=== PATIENT | female | born 1960 | race Caucasian/White ===

== ENCOUNTER 2023-10-03 08:46 | Emergency (ER) | payer OTHER, SELFPAY ==
--- NOTE | ~2023-10-03 | CT_ITS ---
EXAMINATION: CT HEAD WITHOUT CONTRAST CLINICAL INFORMATION: Transient facial droop COMPARISON: None. TECHNIQUE: Contiguous axial imaging was performed from the skull base to vertex without intravenous contrast. This CT examination was performed using dose optimization techniques as appropriate, variously including the following: * Automated exposure control * Adjustment of mA and/or kV according to patient size (this includes techniques or standardized protocols for targeted exams where dose is matched to indication/reason for exam; i.e. extremities or head) Use of iterative reconstruction technique DLP: 716 mGy-cm. FINDINGS: There is no evidence of acute intracranial hemorrhage or territorial infarction. No abnormal mass effect or midline shift is seen. Vyas to white matter differentiation is well preserved. No extra-axial fluid collections are identified. No hydrocephalus. No significant volume loss. There is no abnormal attenuation within the brain parenchyma. The osseous structures and soft tissues are normal. The mastoid air cells and visualized portions of the paranasal sinuses are well aerated. CT/CT head/brain wo IV con IMPRESSION: No acute intracranial pathology.
[2023-10-03 09:00] VITALS: PULSE 110; O2SAT 96
[2023-10-03 09:01] VITALS: BMI 26.5
--- NOTE | 2023-10-03 09:31 | ED_ITS ---
HPI - General Adult General Chief complaint: General Medical Stated complaint: L SIDED FACIAL PALSY Time Seen by Provider: 10/03/23 09:26 Source: patient, EMS, RN notes reviewed and other (facility staff) Mode of arrival: EMS Limitations: physical limitation History of Present Illness HPI narrative: Patient is a 63-year-old female with history of schizophrenia, afib, HTN, hypothyroidism, CHD, HLD, head injury in 1982 presenting to the emergency department from [place] for concern of left sided facial droop and stiffness. Per nursing notes droop was noted on day shift 7-3 yesterday, no other specific time can be established, note also states patient was hyponatremic on 09/23 with level of 128. Patient's only complaint is sensation of having to urinate but when she attempts to go, she in unable. Staff report patient has been complaining of urinary symptoms since yesterday. Patient denies chest pain, palpitations, shortness of breath. She denies abdominal pain, nausea, vomiting, diarrhea, constipation. MD complaint: facial droop Onset (ago): unknown Location: face Associated symptoms: other (urinary urgency) Treatments prior to arrival: none Related Data Allergies Allergy/AdvReac Type Severity Reaction Status Date / Time codeine [CODEINE] Allergy Severe DIFF Verified 10/03/23 08:59 BREATHING morphine [MORPHINE] Allergy Severe DIFF Verified 10/03/23 08:59 BREATHING zolpidem [From AMBIEN] Allergy Severe THROAT Verified 10/03/23 08:59 CLOSES oxycodone [OXYCODONE] Allergy Intermediate HIVES Verified 10/03/23 08:59 From DEMEROL Allergy Intermediate HIVES Uncoded 10/03/23 08:59 From KEFLEX Allergy Intermediate HIVES Uncoded 10/03/23 08:59 From PROZAC Allergy Intermediate HIVES Uncoded 10/03/23 08:59 Review of Systems 2 Review of Systems: As per HPI Yes all other systems are reviewed and are negative PMFSH Social History Social History Smoked in Last 30 Days: No Use of substances other than those prescribed or required for medical reasons: No Advance Directives: Yes Advance Directives Information Provided: Yes Advance Directives on File: No Patient : No Physical Exam ED Vital Signs: Vital Signs - 24 hr 10/03/23 10:40 10/03/23 11:15 10/03/23 13:20 Temperature 98.0 F 98.3 F 97.0 F Pulse Rate 78 74 87 Respiratory Rate 15 16 16 Blood Pressure 145/56 H 142/59 H 152/62 H Pulse Oximetry 96 98 96 Oxygen Delivery Method Room Air Room Air Room Air BMI result Body Mass Index 26.5 Vital signs have been reviewed and appear to be correct. Blood pressure normal. Heart rate normal. Respiratory rate normal. Temperature normal. Oxygen saturation normal. Const General: cooperative, no acute distress, alert and awake Nutritional Appearance: average body habitus Orientation/consciousness: patient oriented x3 HENMT Head: Yes normocephalic and Yes atraumatic Ears: hearing grossly normal bilaterally and external ears normal General nose exam: Normal external nose present Face and sinus: Yes normal facial exam and Yes face symmetric Mouth: Normal oral and palatal mucosa present Throat: Yes posterior oropharynx normal, Yes uvula midline and No uvular edema Eyes Visual Early: normal visual early by confrontation Pupils: Equal, round and reactive pupils present EOM: EOMs intact bilaterally Neck Neck: Yes normal visual inspection, Yes full ROM and Yes supple Resp Effort & Inspection: normal respiratory effort Auscultation: clear to auscultation bilaterally Cardio Rate: regular rate Rhythm: regular rhythm Heart sounds: S1 normal heart sound present and S2 normal heart sound present GI Inspection: Yes normal to inspection Palpation (GI): Soft to palpation and nontender Auscultation: normoactive bowel sounds General: Yes no CVA tenderness Back/Spine/Pelvis Back: no CVA tenderness Skin General skin exam: elasticity normal and turgor normal Neuro General: patient oriented x3, tone normal, moves all extremities, Normal light touch and pain sensation, no focal motor deficits and CN's II-XI intact bilaterally Cranial nerves: Yes Equal, round and reactive pupils present Sensory Exam: Normal double simultaneous stimulation for sensation Extrem General: Yes normal to inspection, Yes full ROM and Yes capillary refill normal Psych Appearance: grossly normal Affect: Blunted affect present Attitude: cooperative NIH Stroke Scale Internal: Initial- Upon Arrival Time: 10:32 Level of Consciousness: Alert Level of Consciousness Questions: Answers both questions correctly Level of Consciousness Commands: Performs both tasks correctly Best Gaze: Normal Visual: No visual loss Facial Palsy: Normal Motor Arm (Right): No drift Motor Arm (Left): No drift Motor Leg (Right): No drift Motor Leg (Left): No drift Limb Ataxia: Absent Sensory: Normal Best Language: No aphasia Dysarthia: Normal Extinction and Inattention: No abnormality Score: 0 Medications Administered Discontinued Medications Generic Name Dose Route Start Last Admin Trade Name Jim PRN Reason Stop Dose Admin Sodium Chloride 1,000 mls @ 999 mls/hr 10/03/23 11:45 10/03/23 13:08 Ns IV 10/03/23 12:45 Not Given .Q1H1M [facility] Medical Decision Making Medical Decision Making [facility] Narrative: Patient is a 63-year-old female with history of schizophrenia, afib, HTN, hypothyroidism, CHD, HLD, head injury in 1982 presenting to the emergency department from [place] for concern of left sided facial droop and stiffness. On exam patient is awake, A+Ox3, VS WNL, afebrile, normal neurological exam without focal deficits, physical exam findings as above. Given reported symptoms and physical exam findings, initial differential includes CVA/TIA/ICH, medication reaction, UTI, electrolyte abnormality. Labs notable for no leukocytosis, hyponatremia. IV fluids ordered which patient refused. Patient amenable to PO salt in the ED. Sodium stable from labs on 09/23. Will recommend trending sodium levels outpatient. CT notable for no acute abnormalities. My interpretation is in agreement with the radiologist's interpretation. NIHSS 0. No facial droop or other focal neurological deficit noted on exam. No evidence of infection on UA. Feel patient is stable back to facility at this time. Return precautions discussed at bedside with staff who verbalized understanding of and agreement with plan. Differential Diagnosis Differential Diagnoses: The differential diagnosis associated with the presentation includes As per [facility]. Admission/Observation Consideration of admission/observation: Escalation of care including admission/observation considered Lab Data [facility] Lab Attestation statement: I reviewed the patient's lab results. As per MDM. 10/03/23 11:11 10/03/23 11:11 Labs: Lab Results 10/03/23 10/03/23 Range/Units 11:11 11:55 WBC 5.8 (4.8-10.8) X10*3/uL RBC 3.88 L (4.20-5.50) X10*6/uL Hgb 12.0 (12.0-16.0) g/dl Hct 33.5 L (37.0-47.0) % MCV 86.3 (80.0-98.0) fL MCH 30.9 (27.0-33.0) pg MCHC 35.8 H (31.0-35.0) g/dl RDW 12.4 (11.0-16.0) % Plt Count 269 (160-400) X10*3/uL MPV 9.2 L (9.4-12.3) fL Immature Gran % (Auto) 0.3 (0.0-0.4) % Neut % (Auto) 63.0 (45-73) % Lymph % (Auto) 22.6 (20-40) % [place] % (Auto) 11.1 H (2-11) % Eos % (Auto) 2.3 (0-4) % Baso % (Auto) 0.7 (0-2) % Lymph # (Auto) 1.3 (1.2-4.9) X10*3/uL [place] # (Auto) 0.6 (0.1-1.2) X10*3/uL Eos # (Auto) 0.1 (0.0-0.4) X10*3/uL Baso # (Auto) 0.0 (0.0-0.2) X10*3/uL Abs Immat Gran (auto) 0.02 (0.00-0.03) X10*3/uL Absolute Neuts (auto) 3.6 (2.0-8.3) x10*3/uL Absolute Nucleated RBC 0.000 (0.0-0.012) X10*3/uL Nucleated RBC % (auto) 0.0 (0.0-0.2) /100WBC Sodium 128 L (135-145) mmol/L Potassium 3.7 (3.3-5.1) mmol/L Chloride 93 L (96-108) mmol/L Carbon Dioxide 27 (22-29) mmol/L Anion Gap 12 (12-20) BUN 8 L (9-16) mg/dL Creatinine 0.52 (0.5-1.4) mg/dL Estim Creat Clear Calc 101.1 Estimated GFR > 60 Random Glucose 81 (60-115) mg/dL Calcium 8.6 (8.4-10.2) mg/dL Urine Color Yellow Urine Appearance Clear Urine pH 6.0 (5.0-9.0) Ur Specific [place] 1.015 (1.005-1.025) Urine Protein Negative (Neg-Trace) mg/dL Urine Glucose (UA) Negative (Negative) mg/dL Urine Ketones 80 (Negative) mg/dL Urine Blood Negative (Negative) Urine Nitrite Negative (Negative) Ur Leukocyte Esterase Negative (Negative) Independent Interpretation I performed an independent interpretation of an: CT Scan Interpretation: No acute intracranial pathology. Radiology Impression Discussion of test interpretation with radiology: I have reviewed the radiologist's reading. Radiologist Impression: CT/CT head/brain wo IV con IMPRESSION: No acute intracranial pathology. Independent Historian Clinical information obtained from an independent historian. History obtained from or confirmed by: Other (facility staff) External Record Review External record reviewed: Inpatient record, Office record and Outpatient record Chronic Conditions Patient?s care impacted by: Other (schizophrenia) Discharge Plan Discharge Clinical Impression: Hyponatremia Patient Disposition: [facility] Transfer Details: Return to [place] with staff Instructions: Hyponatremia (ED) Additional Instructions: Ema should have her sodium levels monitored regularly, as her level was low on 09/23 and was also low in the emergency department today. Her urine did not show evidence of infection. She should return to the emergency department if she develops new confusion, loss of consciousness, numbness/tingling, weakness, trouble speaking, vision changes, chest pain, shortness of breath, or any other concerning symptoms.
[2023-10-03 10:40] VITALS: BP 145/56; PULSE 78; RESP 15; TEMP 36.7; O2SAT 96
[2023-10-03 11:15] VITALS: BP 142/59; PULSE 74; RESP 16; TEMP 36.8; O2SAT 98
[2023-10-03 11:16] LABS: MANUAL DIFF FLAG NO
[2023-10-03 11:19] LABS: Basophils Percent Auto 0.7 % (0-2); Eosinophils Absolute Auto 0.1 X10*3/uL (0.0-0.4); Eosinophils Percent Auto 2.3 % (0-4); Hematocrit 33.5 % (37.0-47.0); Imm Gran Abs Auto 0.02 X10*3/uL (0.00-0.03); Imm Gran Pct Auto 0.3 % (0.0-0.4); Lymphocytes Absolute Auto 1.3 X10*3/uL (1.2-4.9); Lymphocytes Percent Auto 22.6 % (20-40); Mean Corpuscular HGB Conc 35.8 g/dl (31.0-35.0); Mean Corpuscular Hemoglobin 30.9 pg (27.0-33.0); Mean Corpuscular Volume 86.3 fL (80.0-98.0); Mean Platelet Volume 9.2 fL (9.4-12.3); Monocytes Absolute Auto 0.6 X10*3/uL (0.1-1.2); Monocytes Percent Auto 11.1 % (2-11); Neutrophils Absolute Auto 3.6 x10*3/uL (2.0-8.3); Platelet Count 269 X10*3/uL (160-400); Red Blood Count 3.88 X10*6/uL (4.20-5.50); Red Cell Distribution Width 12.4 % (11.0-16.0); White Blood Count 5.8 X10*3/uL (4.8-10.8)
[2023-10-03 11:31] LABS: Anion Gap 12 (12-20); Blood Urea Nitrogen 8 mg/dL (9-16); Calcium 8.6 mg/dL (8.4-10.2); Carbon Dioxide 27 mmol/L (22-29); Chloride 93 mmol/L (96-108); Creatinine Clr Calc Pharmacy 101.1; Estimated Glomerular Filt Rate > 60; Glucose Random 81 mg/dL (60-115); Potassium 3.7 mmol/L (3.3-5.1); Sodium 128 mmol/L (135-145)
[2023-10-03 12:13] LABS: Appearance Urine Clear; Color Urine Yellow; Glucose Urine UA Negative (Negative); Leukocyte Esterase Urine Negative (Negative); Nitrite Urine Negative (Negative); Specific Gravity - Urine 1.015 (1.005-1.025); Urine Blood Negative (Negative); Urine Ketones 80 mg/dL (Negative); Urine Protein Negative (Neg-Trace)
--- NOTE | 2023-10-03 13:08 | PC.NURSE ---
PT A/O X 3 NO SOB/EZIO NOTED SPEAKS IN FULL SENTENCE. BHN PERSONNEL AT BEDSIDE. PT REFUSED HEPLOCK AND IV FLUIDS. PROVIDER - GABRIELLE (TANYA) AWARE.VPT TO BE GIVEN MULTIPLE SALTINE CRACKERS AND JUICE. NO BEHAVIOR ISSUES.
[2023-10-03 13:20] VITALS: BP 152/62; PULSE 87; RESP 16; TEMP 36.1; O2SAT 96
--- NOTE | 2023-10-03 13:37 | MHC.EDTECH ---
Pt given diet gingerale and multiple packs of saltine crackers
== END 2023-10-03 15:32 ==
PROVIDERS: Registered Nurse Emergency; Emergency Provider Emergency Medicine
DX: E87.1 Hypo-osmolality and hyponatremia (principal); R29.810 Facial weakness; N39.41 Urge incontinence; Z79.899 Other long term (current) drug therapy
CPT/HCPCS: 36415; 51701; 70450; 80048; 81003; 85025; 99284

== ENCOUNTER 2023-10-06 06:11 | Emergency (ER) | payer OTHER, SELFPAY ==
[2023-10-06] VITALS (8 sets, daily range): BP systolic 102–157; BP diastolic 52–67; PULSE 82–135; RESP 13–24; TEMP 36.4–37.9; O2SAT 93–99; BMI 25.3
--- NOTE | 2023-10-06 | ECG_ITS ---
Test Reason : CHEST PAIN Blood Pressure : / mmHG Vent. Rate : 093 BPM Atrial Rate : 093 BPM P-R Int : 138 ms QRS Dur : 092 ms QT Int : 378 ms P-R-T Axes : 053 074 049 degrees QTc Int : 469 ms Sinus rhythm with Premature atrial complexes RSR' or QR pattern in V1 suggests right ventricular conduction delay Abnormal ECG When compared with ECG of 11-SEP-2015 14:34, Premature atrial complexes are now Present Nonspecific T wave abnormality no longer evident in Anterior leads Referred By: Generic ED Physician Electronically Signed By:YU BASHIR MD
--- NOTE | ~2023-10-06 | CT_ITS ---
Examination: CT brain and CT cervical spine without contrast. Clinical indications: Fall. COMPARISON: CT brain 10/03/2023. TECHNIQUE: 5 minutes thin axial and reformatted 2 mm thin sagittal and coronal images of brain were obtained. Subsequently axial 3 minutes thin and reformatted 2 mm thin sagittal and coronal images of cervical spine were obtained. DLP [id number]. This CT examination was performed using dose optimization technique as appropriate, variously including the following: Automated exposure control Adjustment of MA and/or KV according to patient size(this includes techniques or standardized protocols for targeted exams where dose is matched to indication/reason for exam; extremities or head. Use of iterative reconstruction techniques. FINDINGS: Brain: There is no acute intra-axial, extra-axial bleed, masses or midline shift. There is no acute infarction evolution. There is no edema. The young to white matter differentiation is maintained normal. The lateral ventricles are symmetrical in size and configuration without enlargement. Bone windows reveal no calvarial abnormality. There is no scalp soft tissue abnormality. There is mild mucosal thickening in bilateral maxillary and ethmoid sinuses. There is no scalp soft tissue abnormality. Cervical spine: There is mild straightening of cervical lordosis. The vertebral heights, alignment and disc heights are normal. There is mild ventral spondylosis C5-C6, C6-C7 disc levels. The craniovertebral junction and the C1-C2 alignment is normal. The airways widely patent. Visualized bilateral thyroid lobes, submandibular and parotid glands are unremarkable. The airway is widely patent. The lung apices are clear. CT/CT cervical spine wo IV con IMPRESSION: 1. No acute intracranial process seen. 2. There is no acute fracture, dislocation or subluxation in cervical spine. There is mild ventral spondylosis C5-C6 and C6-C7 disc levels.
--- NOTE | ~2023-10-06 | XR_ITS ---
EXAMINATION: Right shoulder and chest. CLINICAL INDICATION: Right shoulder pain and SOB. COMPARISON: None. TECHNIQUE: Right shoulder 3 views and chest one view. FINDINGS: Right shoulder: There is no visible acute fracture, dislocation or subluxation. The glenohumeral and AC joint space is maintained normal. The soft tissues are normal. CHEST: The lungs are well-expanded and clear. The heart size and pulmonary vascularity is normal. No gross bony abnormality seen. XR/XR shoulder RT min 2V IMPRESSION: 1. Unremarkable right shoulder exam. 2. Unremarkable chest exam.
--- NOTE | ~2023-10-06 | XR_ITS ---
EXAMINATION: Right shoulder and chest. CLINICAL INDICATION: Right shoulder pain and SOB. COMPARISON: None. TECHNIQUE: Right shoulder 3 views and chest one view. FINDINGS: Right shoulder: There is no visible acute fracture, dislocation or subluxation. The glenohumeral and AC joint space is maintained normal. The soft tissues are normal. CHEST: The lungs are well-expanded and clear. The heart size and pulmonary vascularity is normal. No gross bony abnormality seen. XR/XR chest 1V IMPRESSION: 1. Unremarkable right shoulder exam. 2. Unremarkable chest exam.
--- NOTE | 2023-10-06 06:31 | PC.NURSE ---
pt reporting that her is not correct, RN verifying with [facility] staff at this time
--- NOTE | 2023-10-06 06:33 | PC.NURSE ---
staff reporting is 64. registration is aware
--- NOTE | 2023-10-06 06:36 | ED.GENADULT ---
HPI - General Adult General Chief complaint: General Medical Stated complaint: chest tightness Time Seen by Provider: 10/06/23 06:35 Source: patient, EMS, RN notes reviewed and old records reviewed Mode of arrival: EMS History of Present Illness HPI narrative: 63-year-old female with a past medical history of schizophrenia, A.fib on Eliquis, HTN, hypothyroidism, CHD, HLD, head injury in 1982 presenting to the ED from [place] complaining of unwitnessed mechanical fall from bed last night. Patient admits to hitting head, denies LOC, also reports right shoulder pain. Patient reports noncompliance with medications. Patient reports inability to urinate. Denies headache, neck/pain, CP/SOB, abdominal pain, nausea/vomiting. Onset (ago): hour(s) Related Data Home Medications Medication Instructions Recorded Confirmed acetaminophen 325 mg tablet 650 mg PO Q4H PRN Pain (Scale 10/06/23 10/06/23 Score 1-3) aluminum-mag hydroxide-simethicone 30 ml PO Q6H PRN Heartburn 10/06/23 10/06/23 400 mg-400 mg-40 mg/5 mL oral susp (Mylanta Maximum Strength) apixaban 5 mg tablet 5 mg PO BID 10/06/23 10/06/23 aspirin 81 mg chewable tablet 81 mg PO DAILY 10/06/23 10/06/23 atorvastatin 20 mg tablet 20 mg PO BEDTIME 10/06/23 10/06/23 benztropine 1 mg tablet 1 mg PO BID PRN EPS 10/06/23 10/06/23 chlorpromazine 25 mg/mL injection 50 mg IM Q4H PRN Agitation 10/06/23 10/06/23 solution chlorpromazine 50 mg tablet 50 mg PO Q4H PRN Agitation 10/06/23 10/06/23 cyanocobalamin (vitamin B-12) 1,000 mcg PO DAILY 10/06/23 10/06/23 1,000 mcg tablet diphenhydramine HCl 25 mg tablet 25 mg PO TID PRN Anxiety 10/06/23 10/06/23 diphenhydramine HCl 50 mg/mL 50 mg IM Q4H PRN Agitation 10/06/23 10/06/23 injection solution folic acid 1 mg tablet 1 mg PO DAILY 10/06/23 10/06/23 glycopyrrolate 1 mg tablet 1 mg PO BID 10/06/23 10/06/23 haloperidol 2 mg tablet 2 mg PO BID PRN Psychosis 10/06/23 10/06/23 haloperidol decanoate 100 mg/mL 100 mg IM Q2W 10/06/23 10/07/23 intramuscular solution (Haldol Decanoate) haloperidol lactate 5 mg/mL 2 mg IM BID PRN Psychosis 10/06/23 10/06/23 injection solution levothyroxine 25 mcg tablet 25 mcg PO DAILY 10/06/23 10/06/23 lorazepam 1 mg tablet 1 mg PO Q6H PRN Anxiety 10/06/23 10/06/23 lorazepam 2 mg tablet 2 mg PO BID 10/06/23 10/06/23 magnesium hydroxide 400 mg/5 mL 30 ml PO BEDTIME PRN Constipation 10/06/23 10/06/23 oral suspension (Milk of Magnesia) metoprolol tartrate 25 mg tablet 12.5 mg PO BID 10/06/23 10/06/23 mirtazapine 15 mg tablet 22.5 mg PO BEDTIME 10/06/23 10/06/23 multivitamin 1 tab PO DAILY 10/06/23 10/06/23 naproxen 500 mg tablet 500 mg PO BID PRN Pain (Scale 10/06/23 10/06/23 Score 1-3) nicotine (polacrilex) 2 mg gum 2 mg buccal Q2H PRN Nicotine 10/06/23 10/06/23 Cravings paliperidone palmitate 234 mg/1.5 234 mg IM Q4W 10/06/23 10/07/23 mL intramuscular syringe (Invega Sustenna) pantoprazole 40 mg tablet,delayed 40 mg PO DAILY 10/06/23 10/06/23 release pantoprazole 40 mg tablet,delayed 40 mg PO DAILY 10/06/23 10/06/23 release polyethylene glycol 3350 17 gram 17 g PO DAILY 10/06/23 10/06/23 oral powder packet (Miralax) trazodone 50 mg tablet 50 mg PO BEDTIME PRN Insomnia 10/06/23 10/06/23 Allergies Allergy/AdvReac Type Severity Reaction Status Date / Time codeine [CODEINE] Allergy Severe DIFF Verified 10/03/23 08:59 BREATHING morphine [MORPHINE] Allergy Severe DIFF Verified 10/03/23 08:59 BREATHING zolpidem [From AMBIEN] Allergy Severe THROAT Verified 10/03/23 08:59 CLOSES oxycodone [OXYCODONE] Allergy Intermediate HIVES Verified 10/03/23 08:59 From DEMEROL Allergy Intermediate HIVES Uncoded 10/03/23 08:59 From KEFLEX Allergy Intermediate HIVES Uncoded 10/03/23 08:59 From PROZAC Allergy Intermediate HIVES Uncoded 10/03/23 08:59 Review of Systems Review of Systems: Constitutional: No Fever, No Chills, No Fatigue, No Malaise ENT/Mouth: No Hearing loss, No Ear Pain, No Nasal Congestion, No sore throat, No Rhinorrhea, No Swallowing Difficulty Eyes: No Eye Pain, No Swelling, No Redness, No Discharge, No Vision Changes Cardiovascular: No Chest Pain, No SOB, No Edema, No Palpitations Respiratory: No Cough Gastrointestinal: No Nausea, No Vomiting, No Diarrhea, No Constipation, No Abdominal pain Genitourinary: No Dysuria, +retention, + Hesitancy Musculoskeletal: + joint pain, No Myalgias, No Joint Swelling Skin: No Skin Lesions, No rash Neuro: No Weakness, No Loss of Consciousness, No Dizziness, +head injury, No Headache Yes all other systems are reviewed and are negative Constitutional: Constitutional: Reports as per HPI Neurologic: Denies Abnormal speech present [facility] Past Medical History Attestation statement: The following information was validated with the patient. Source: old records reviewed Social History Smoked in Last 30 Days: No Use of substances other than those prescribed or required for medical reasons: No Advance Directives: No Advance Directives Information Provided: No Patient : No Physical Exam ED Vital Signs: Vital Signs - 24 hr 10/06/23 22:08 10/07/23 06:38 10/07/23 09:22 Temperature 99.7 F 99.2 F 98.4 F Pulse Rate 107 H 106 H 98 Respiratory Rate 21 H 18 15 Blood Pressure 142/59 H 131/75 140/68 H Pulse Oximetry 94 97 95 Oxygen Delivery Method Room Air Room Air Room Air BMI result Body Mass Index 25.3 Const General: cooperative, healthy appearing and no acute distress Orientation/consciousness: patient oriented x3 Limitations: no limitations HENMT Head: Yes normal to inspection and Yes atraumatic Ears: hearing grossly normal bilaterally General nose exam: Normal external nose present Face and sinus: Yes normal facial exam Throat: Yes posterior oropharynx normal Eyes General: appearance normal, both eyes and all related structures Pupils: Equal, round and reactive pupils present EOM: EOMs intact bilaterally Neck Neck: Yes normal visual inspection and Yes no meningeal signs Resp Effort & Inspection: normal respiratory effort and no respiratory distress Auscultation: clear to auscultation bilaterally Cardio Rate: regular rate Heart sounds: S1 normal heart sound present and S2 normal heart sound present GI Inspection: Yes normal to inspection Palpation (GI): Soft to palpation, nontender, no guarding and not rigid General: Yes no CVA tenderness Back/Spine/Pelvis Other: No midline cervical/thoracic/lumbar spinous tenderness/step-off or deformity Back: no CVA tenderness Skin Rashes: no rashes Wounds: no wounds Neuro General: patient oriented x3, tone normal, moves all extremities, no meningeal signs, no focal motor deficits and CN's II-XI intact bilaterally Cranial nerves: Yes CN's II-XII intact bilaterally and Yes Equal, round and reactive pupils present Cognition (Neuro): normal cognition Speech: No Abnormal speech present Gait exam (Neuro): Normal gait present Motor exam (neuro): 5/5 motor strength present throughout Extrem Other: Right shoulder without deformity. Mildly tender to palpation. Full range of motion intact. Neurovascular intact distally General: Yes normal to inspection Course Course Course Narrative: -0921--no leukocytosis. H&H stable. Troponin negative. XR chest 1V/XR shoulder RT min 2V IMPRESSION: 1. Unremarkable right shoulder exam. 2. Unremarkable chest exam. - 107 ml on bladder scan CT head/brain wo IV con/CT cervical spine wo IV con IMPRESSION: 1. No acute intracranial process seen. 2. There is no acute fracture, dislocation or subluxation in cervical spine. There is mild ventral spondylosis C5-C6 and C6-C7 disc levels. -1111--patient reporting she is unable to ambulate. No focal weakness appreciated on exam. Patellar DTRs WNL. Patient able to get herself up and out of bed, takes a few steps with double assist. Per staff at baseline patient ambulates without assistance. Concern for psych component, however will obtain PT eval. Low suspicion for demyelinating process including [place] or CVA -UA negative. Physician observation initiated at 1243 as patient needs more time to be evaluated by physical therapy -physical therapy evaluated patient and recommended home with services. Pending case management Reevaluation(s) Reevaluation #1: Patient has remained stable overnight. I personally reviewed all labs and imaging and do not appreciate any acute abnormalities. I spoke with Britt from case management this morning who states that patient will be transferred to [facility], [place], via [facility] this morning. She is booking transport at the moment. Patient is stable for d/c. Time: 08:51 Medications Administered Discontinued Medications Generic Name Dose Route Start Last Admin Trade Name Freq PRN Reason Stop Dose Admin Acetaminophen 975 mg 10/06/23 20:35 10/06/23 20:50 Acetaminophen 325 Mg Tablet PO 10/06/23 20:36 975 mg ONCE ONE Administration Apixaban 5 mg 10/07/23 09:00 10/07/23 08:51 Apixaban 5 Mg Tablet PO 5 mg BID CANDELARIO Administration Aspirin 81 mg 10/07/23 09:00 10/07/23 08:50 Aspirin 81 Mg Tab.Chew PO 81 mg DAILY CANDELARIO Administration Cyanocobalamin 1,000 mcg 10/07/23 09:00 10/07/23 08:51 Cyanocobalamin (Vitamin B-12) 1,000 Mcg Tablet PO 1,000 mcg DAILY CANDELARIO Administration Folic Acid 1 mg 10/07/23 09:00 10/07/23 08:51 Folic Acid 1 Mg Tablet PO 1 mg DAILY CANDELARIO Administration Levothyroxine Sodium 25 mcg 10/07/23 09:00 10/07/23 08:51 Levothyroxine Sodium 25 Mcg Tablet PO 25 mcg DAILY@0600 CANDELARIO Administration Lorazepam 1 mg 10/07/23 04:05 10/07/23 04:08 Lorazepam 1 Mg Tablet PO 10/07/23 04:06 1 mg ONCE ONE Administration Lorazepam 2 mg 10/07/23 09:00 10/07/23 08:50 Lorazepam 1 Mg Tablet PO 2 mg BID CANDELARIO Administration Metoprolol Tartrate 12.5 mg 10/07/23 09:00 10/07/23 08:50 Metoprolol Tartrate 12.5 Mg Halftab PO 12.5 mg BID CANDELARIO Administration Protocol Multivitamins/Vitamin C 1 tab 10/07/23 09:00 10/07/23 08:50 Multivitamin Tablet PO 1 tab DAILY CANDELARIO Administration Omeprazole 20 mg 10/07/23 09:00 10/07/23 08:51 Omeprazole 20 Mg Capsule. PO 20 mg DAILY@0630 CANDELARIO Administration Polyethylene Glycol 17 gm 10/07/23 09:00 10/07/23 08:52 Polyethylene Glycol 3350 17 Gm Powd.Pack PO 17 gm DAILY CANDELARIO Administration Medical Decision Making Medical Decision Making [facility] Narrative: 63-year-old female with a past medical history of schizophrenia, A.fib on Eliquis, HTN, hypothyroidism, CHD, HLD, head injury in 1982 presenting to the ED from [place] complaining of unwitnessed mechanical fall from bed last night. Patient admits to hitting head, denies LOC, also reports right shoulder pain. On exam vital signs stable, NAD, nontoxic appearing, no midline spinous tenderness or focal neuro deficits, no evidence of trauma. Concern for mechanical fall. Rule out ICH/fractures vs metabolic/infectious etiology. Rule out urinary retention vs UTI Plan: EKG, labs, UA, bladder scan, head/C-spine CT, x-rays Please refer to course for remaining clinical decision making, interpretation of labs/imaging results, and discussions with consultants and/or family members. Differential Diagnosis Differential Diagnoses: The differential diagnosis associated with the presentation includes As above Admission/Observation Consideration of admission/observation: Escalation of care including admission/observation considered Consult Healthcare Provider [place] worker Lab Data [facility] Lab Attestation statement: I reviewed the patient's lab results. 10/06/23 07:09 10/06/23 07:09 Labs: Lab Results 10/06/23 10/06/23 10/06/23 Range/Units 07:09 11:16 20:52 WBC 9.9 (4.8-10.8) X10*3/uL RBC 3.78 L (4.20-5.50) X10*6/uL Hgb 11.7 L (12.0-16.0) g/dl Hct 33.9 L (37.0-47.0) % MCV 89.7 (80.0-98.0) fL MCH 31.0 (27.0-33.0) pg MCHC 34.5 (31.0-35.0) g/dl RDW 13.0 (11.0-16.0) % Plt Count 265 (160-400) X10*3/uL MPV 9.4 (9.4-12.3) fL Immature Gran % (Auto) 0.2 (0.0-0.4) % Neut % (Auto) 74.3 H (45-73) % Lymph % (Auto) 11.6 L (20-40) % [place] % (Auto) 12.0 H (2-11) % Eos % (Auto) 1.4 (0-4) % Baso % (Auto) 0.5 (0-2) % Lymph # (Auto) 1.1 L (1.2-4.9) X10*3/uL [place] # (Auto) 1.2 (0.1-1.2) X10*3/uL Eos # (Auto) 0.1 (0.0-0.4) X10*3/uL Baso # (Auto) 0.1 (0.0-0.2) X10*3/uL Abs Immat Gran (auto) 0.02 (0.00-0.03) X10*3/uL Absolute Neuts (auto) 7.3 (2.0-8.3) x10*3/uL Absolute Nucleated RBC 0.000 (0.0-0.012) X10*3/uL Nucleated RBC % (auto) 0.0 (0.0-0.2) /100WBC Sodium 135 (135-145) mmol/L Potassium 3.4 (3.3-5.1) mmol/L Chloride 100 (96-108) mmol/L Carbon Dioxide 27 (22-29) mmol/L Anion Gap 11 L (12-20) BUN 12 (9-16) mg/dL Creatinine 0.61 (0.5-1.4) mg/dL Estim Creat Clear Calc 87.6 Estimated GFR > 60 Random Glucose 92 (60-115) mg/dL Calcium 8.7 (8.4-10.2) mg/dL Total Bilirubin 0.3 (0.0-1.0) mg/dL AST 18 (5-31) U/L ALT 16 (0-31) U/L Alkaline Phosphatase 70 (39-117) U/L Troponin I High Sens < 2.7 (<3.5-17.0) ng/L B-Natriuretic Peptide 20 (<100) pg/mL Total Protein 6.5 (6.5-8.0) g/dL Albumin 3.6 (3.5-5.0) g/dL Urine Color Yellow Urine Appearance Clear Urine pH 6.5 (5.0-9.0) Ur Specific [employer] 1.020 (1.005-1.025) Urine Protein Negative (Neg-Trace) mg/dL Urine Glucose (UA) Negative (Negative) mg/dL Urine Ketones Trace (Negative) mg/dL Urine Blood Negative (Negative) Urine Nitrite Negative (Negative) Ur Leukocyte Esterase Trace H (Negative) Urine RBC 3-5 H (0-2) /HPF Urine WBC 0-5 (0-5) /HPF Ur Squamous Epith Cells 3-5 (0-2) /HPF Urine Bacteria None Seen (None Seen) Hyaline Casts 0-2 (0-2) /LPF Influenza Type A (PCR) NEGATIVE (Negative) Influenza Type B (PCR) NEGATIVE (Negative) RSV RNA Qual (PCR) NEGATIVE (Negative) SARS-CoV-2 RNA (RT-PCR) NEGATIVE (Negative) Independent Interpretation I performed an independent interpretation of an: EKG, Plain X-Ray and CT Scan Radiology Impression Discussion of test interpretation with radiology: I have reviewed the radiologist's reading. Independent Historian Clinical information obtained from an independent historian. History obtained from or confirmed by: EMS External Record Review External record reviewed: Inpatient record, Office record, Outpatient record, Prior outpatient labs, Prior outpatient radiology, Primary care record and Outside ED record Tests considered The following testing was considered but not selected: As above Chronic Conditions Patient?s care impacted by: Hypertension and Other Discharge Plan Discharge Clinical Impression: Right shoulder pain, Fall Patient Disposition: Xfer LTC Transfer Details: [place] via [facility] Prescriptions: No Action multivitamin Tablet 1 tab PO DAILY glycopyrrolate 1 mg Tablet 1 mg PO BID acetaminophen 325 mg Tablet 650 mg PO Q4H PRN (Reason: Pain (Scale Score 1-3)) atorvastatin 20 mg Tablet 20 mg PO BEDTIME trazodone 50 mg Tablet 50 mg PO BEDTIME PRN (Reason: Insomnia) polyethylene glycol 3350 [Miralax] 17 gram Powder In Packet 17 g PO DAILY nicotine (polacrilex) 2 mg Gum 2 mg BUCCAL Q2H PRN (Reason: Nicotine Cravings) haloperidol decanoate [Haldol Decanoate] 100 mg/mL Solution 100 mg IM Q2W cyanocobalamin (vitamin B-12) 1,000 mcg Tablet 1,000 mcg PO DAILY levothyroxine 25 mcg Tablet 25 mcg PO DAILY diphenhydramine HCl 50 mg/mL Solution 50 mg IM Q4H PRN (Reason: Agitation) magnesium hydroxide [Milk of Magnesia] 400 mg/5 mL Suspension 30 ml PO BEDTIME PRN (Reason: Constipation) lorazepam 2 mg Tablet 2 mg PO BID pantoprazole 40 mg Tablet,Delayed Release (Dr/Ec) 40 mg PO DAILY pantoprazole 40 mg Tablet,Delayed Release (Dr/Ec) 40 mg PO DAILY diphenhydramine HCl 25 mg Tablet 25 mg PO TID PRN (Reason: Anxiety) benztropine 1 mg Tablet 1 mg PO BID PRN (Reason: EPS) chlorpromazine 25 mg/mL Solution 50 mg IM Q4H PRN (Reason: Agitation) aspirin 81 mg Tablet,Chewable 81 mg PO DAILY folic acid 1 mg Tablet 1 mg PO DAILY haloperidol lactate [Haldol] 5 mg/mL Solution 2 mg IM BID PRN (Reason: Psychosis) mirtazapine 15 mg Tablet 22.5 mg PO BEDTIME lorazepam 1 mg Tablet 1 mg PO Q6H PRN (Reason: Anxiety) haloperidol 2 mg Tablet 2 mg PO BID PRN (Reason: Psychosis) chlorpromazine 50 mg Tablet 50 mg PO Q4H PRN (Reason: Agitation) naproxen 500 mg Tablet 500 mg PO BID PRN (Reason: Pain (Scale Score 1-3)) alum-mag hydroxide-simeth [Mylanta Maximum Strength] 400-400-40 mg/5 mL Suspension 30 ml PO Q6H PRN (Reason: Heartburn) metoprolol tartrate 25 mg Tablet 12.5 mg PO BID Invega Sustenna 234 mg/1.5 mL Syringe 234 mg IM Q4W apixaban 5 mg Tablet 5 mg PO BID Referrals: [facility] [Other] Interventions: ED Discharge Assessment Last Done: 10/07/23 10:07 Discharge Date/Time: 10/07/23 10:08
--- NOTE | 2023-10-06 06:42 | PC.NURSE ---
registration is confirming on chart 62
--- NOTE | 2023-10-06 06:52 | MHC.EDTECH ---
this tech is unable to do labswork new 7 am RN was notify
[2023-10-06 07:13] LABS: MANUAL DIFF FLAG NO
[2023-10-06 07:23] LABS: Basophils Absolute Auto 0.1 X10*3/uL (0.0-0.2); Basophils Percent Auto 0.5 % (0-2); Eosinophils Absolute Auto 0.1 X10*3/uL (0.0-0.4); Eosinophils Percent Auto 1.4 % (0-4); Hematocrit 33.9 % (37.0-47.0); Hemoglobin 11.7 g/dl (12.0-16.0); Imm Gran Abs Auto 0.02 X10*3/uL (0.00-0.03); Imm Gran Pct Auto 0.2 % (0.0-0.4); Lymphocytes Absolute Auto 1.1 X10*3/uL (1.2-4.9); Lymphocytes Percent Auto 11.6 % (20-40); Mean Corpuscular HGB Conc 34.5 g/dl (31.0-35.0); Mean Corpuscular Volume 89.7 fL (80.0-98.0); Mean Platelet Volume 9.4 fL (9.4-12.3); Monocytes Absolute Auto 1.2 X10*3/uL (0.1-1.2); Neutrophils Absolute Auto 7.3 x10*3/uL (2.0-8.3); Neutrophils Percent Auto 74.3 % (45-73); Platelet Count 265 X10*3/uL (160-400); Red Blood Count 3.78 X10*6/uL (4.20-5.50); White Blood Count 9.9 X10*3/uL (4.8-10.8)
--- NOTE | 2023-10-06 07:24 | ECG_ITS ---
Test Reason : FELL OUT OF BED Blood Pressure : / mmHG Vent. Rate : 082 BPM Atrial Rate : 082 BPM P-R Int : 146 ms QRS Dur : 096 ms QT Int : 390 ms P-R-T Axes : 062 087 049 degrees QTc Int : 455 ms Normal sinus rhythm Normal ECG When compared with ECG of 06-OCT-2023 06:20, Premature atrial complexes are no longer Present Referred By: Payton Lai Electronically Signed By:YU BASHIR MD
[2023-10-06 07:27] LABS: Alanine Aminotransferase 16 U/L (0-31); Albumin Level 3.6 g/dL (3.5-5.0); Alkaline Phosphatase 70 U/L (39-117); Anion Gap 11 (12-20); Aspartate Amino Transferase 18 U/L (5-31); Bilirubin Total 0.3 mg/dL (0.0-1.0); Blood Urea Nitrogen 12 mg/dL (9-16); Calcium 8.7 mg/dL (8.4-10.2); Carbon Dioxide 27 mmol/L (22-29); Chloride 100 mmol/L (96-108); Creatinine Clr Calc Pharmacy 87.6; Estimated Glomerular Filt Rate > 60; Glucose Random 92 mg/dL (60-115); Potassium 3.4 mmol/L (3.3-5.1); Sodium 135 mmol/L (135-145); Total Protein 6.5 g/dL (6.5-8.0)
[2023-10-06 07:34] LABS: B Type Natriuretic Peptide 20 pg/mL (<100)
[2023-10-06 07:36] LABS: Troponin-I High Sensitivity < 2.7 ng/L (<3.5-17.0)
--- NOTE | 2023-10-06 07:36 | PC.NURSE ---
Dm RN from [facility] called to give pt medication list. reports pt non-compliant with most medications. last medications given: 10/05/23: pt given 1mg IM Ativan at 0300 12.5 metoprolol (am) baby aspirin (am) 22.5mg Mirtazapine (pm) 10/06/23: 1mg cogentin at 0330 50mg trazadone around midnight
--- NOTE | 2023-10-06 08:46 | PC.NURSE ---
assumed care of pt at 0700. pt a&o x4, resting comfortably on stretcher in no apparent distress. family caseworker at bedside. pt reports 5/10 right shoulder pain. pt requesting something to drink. pt told she has to wait until CT/xrays are read. pt compliant. rr even/unlabored. call gunn within pt reach. plan of care ongoing.
--- NOTE | 2023-10-06 10:12 | PC.NURSE ---
charge preparation technician, Sanjuana, from [facility] called for update on pt. asked to give call with pt plan once determined. Sanjuana: [phone]
--- NOTE | 2023-10-06 11:05 | PC.NURSE ---
pt has to use bathroom but sts she cannot get up and walk. CIARA Cain aware and met pt. pt now to be evaluated by PT. pt will use commode for now and obtain UA.
--- NOTE | 2023-10-06 11:07 | PC.NURSE ---
STEPHANIE Wei from [facility] updated with pt plan of care.
[2023-10-06 11:27] LABS: Appearance Urine Clear; Color Urine Yellow; Glucose Urine UA Negative (Negative); Leukocyte Esterase Urine Trace (Negative); Nitrite Urine Negative (Negative); PH 6.5 (5.0-9.0); UMIC TRIGGER UACC YES; Urine Blood Negative (Negative); Urine Ketones Trace mg/dL (Negative); Urine Protein Negative (Neg-Trace)
[2023-10-06 11:36] LABS: Bacteria Urine None Seen (None Seen); Hyaline Casts Urine 0-2 /LPF (0-2); WBC Urine 0-5 /HPF (0-5)
--- NOTE | 2023-10-06 13:21 | PC.NURSE ---
pt evaluated by PT. 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 Dr. Pichardo (psychiatrist): [phone]
--- NOTE | 2023-10-06 14:10 | PC.NURSE ---
pt resting quietly on stretcher watching tv. [place] MHT at bedside.
--- NOTE | 2023-10-06 15:52 | MHC.CM.PN ---
Addendum entered by Roberta Geller 10/06/23 16:00: CM ATTEMPTED TO REACH [facility] AGAIN (4TH CALL) [phone] AGAIN, VM PICKS UP MESSAGE LEFT Original Note: PT SENT TO ED FROM [facility] TO BE PLACED IN STR CM ATTEMPTED TO REACH STAFF AT FACILITY FOR DETAILS AND INFORMATION PERTAINING TO PTS LEGAL STATUS NO HCP OR GUARDIANSHIP ON FILE FACILITY DID NOT ANSWER. REFERRALS WERE SENT, PT EVAL SUPPORTING STR
--- NOTE | 2023-10-06 15:59 | PHA.MEDREC ---
Addendum entered by Mae Morrissey [facility] 10/07/23 08:35: Called [facility] for last doses of haldol injection and Invega injection, they stated Haldol dose was due yesterday 10/06 but the patient did not get it, and dose was to be reduced to 50mg. They also stated Invega last given 09/13/23 and will be due 10/11/23. Changed orders to reflect this. Original Note: Pharmacy Consult ? Medication Reconciliation Pharmacy has completed the medication reconciliation. utilized [facility] current inpatient med list for med rec. Neetu Angeles, ValeriaD
--- NOTE | 2023-10-06 16:05 | PC.NURSE ---
[facility] to [facility] but did not go. pt back to bed rr even/unlabored. on bedside monitor. call gunn within reach.
--- NOTE | 2023-10-06 18:10 | PC.NURSE ---
pt voided in bedside commode. back to bed. MHT from [facility] at bedside. pt provided with snack. watching tv comfortably on stretcher. pt offers no complaints nora. rr even/unlabored. plan of care ongoing.
[2023-10-06] MEDS: Acetaminophen 325 MG TABLET 975 MG PO (20:50)
[2023-10-06 21:33] LABS: Influenza A PCR NEGATIVE (Negative); Influenza B PCR NEGATIVE (Negative); Resp Syncy Virus RNA Qual PCR NEGATIVE (Negative); SARS COV2 PCR INHOUSE NEGATIVE (Negative)
--- NOTE | 2023-10-07 00:55 | PC.NURSE ---
pt assessed, pt denies any pain, repositioned for comfort, staff present at bedside
--- NOTE | 2023-10-07 04:05 | PC.NURSE ---
pt requesting ativan for anxiety at this time. aware. pt medicated with new order
[2023-10-07] MEDS: LORazepam 1 MG TABLET PO (04:08)
--- NOTE | 2023-10-07 05:42 | PC.NURSE ---
pt resting comfortably in bed with eyes closed, [facility] staff at bedside. breathing even and unlabored, no apparent distress noted at this time.
[2023-10-07 06:38] VITALS: BP 131/75; PULSE 106; RESP 18; TEMP 37.3; O2SAT 97
[2023-10-07] MEDS: LORazepam 1 MG TABLET 2 MG PO (08:50)
[2023-10-07] MEDS: Metoprolol Tartrate 12.5 MG HALFTAB PO (08:50)
[2023-10-07] MEDS: Multivitamin TABLET 1 TAB PO (08:50)
[2023-10-07] MEDS: Aspirin 81 MG TAB.CHEW PO (08:50)
[2023-10-07] MEDS: Omeprazole 20 MG CAPSULE.DR PO (08:51)
[2023-10-07] MEDS: Cyanocobalamin (Vitamin B-12) 1,000 MCG TABLET 1000 MCG PO (08:51)
[2023-10-07] MEDS: Folic Acid 1 MG TABLET PO (08:51)
[2023-10-07] MEDS: Apixaban 5 MG TABLET PO (08:51)
[2023-10-07] MEDS: Levothyroxine Sodium 25 MCG TABLET PO (08:51)
[2023-10-07] MEDS: polyethylene glycoL 3350 17 GM POWD.PACK PO (08:52)
--- NOTE | 2023-10-07 09:16 | PC.NURSE ---
patient medicated per the MAR, called pharmacy for two remaining medications. plan for patient to be discharged back to facility. patient states that she does not want to leave she wishes to stay here. staff at bedside who state that patient is cleared and okay to go back. ambulance booked for approx 10am
--- NOTE | 2023-10-07 09:20 | MHC.CM.ED ---
Patient remains in ER. T/W attempted to reach [facility] via telephone at [phone]. Left voicemail requesting return telephone call. Received notification from Ca BROWN that there is a staff member from the facility with patient at bedside. Met with patient and Tenisha, staff member from [facility]. Patient will return to [facility] via BLS at 10am. Kim ZALDIVARS booked. [facility] with chart. Patient, Ca Steven RN and Kindra URBINA aware. Patient has a guardian listed as Scarlett العلي. Scarlett made aware via telephone at [phone]. Scarlett agreeable to d/c back to [facility]. Continue to monitor for d/c needs.
[2023-10-07 09:22] VITALS: BP 140/68; PULSE 98; RESP 15; TEMP 36.9; O2SAT 95
--- NOTE | 2023-10-07 10:03 | PC.NURSE ---
EMS arrived to bring patient back to facility. upon their arrival, patient began to complain of tightness in her chest. patient states that the chest tightness began when the ambulance arrived, when asked if she became nervous upon seeing the ambulance she agreed the chest tightness was due to that. made aware that her workup was negative and that she is cleared to return
== END 2023-10-07 10:08 ==
PROVIDERS: Physician Assistant; Emergency Provider Emergency Medicine
DX: Z04.3 Encounter for examination and observation following other accident (principal); M25.511 Pain in right shoulder; Z91.81 History of falling; R33.9 Retention of urine, unspecified; Z20.822 Contact with and (suspected) exposure to COVID-19; Z20.828 Contact with and (suspected) exposure to other viral communicable diseases; I48.91 Unspecified atrial fibrillation; Z79.01 Long term (current) use of anticoagulants
CPT/HCPCS: 0241U; 36415; 51798; 70450; 71045; 72125; 73030; 80053; 81001; 83880; 84484; 85025; 93005; 97161; 99285

== ENCOUNTER 2024-04-01 11:30 | Emergency (ER) | payer MEDICARE, SELFPAY ==
--- NOTE | ~2024-04-01 | XR_ITS ---
EXAMINATION: XR CHEST CLINICAL INFORMATION: Chest pain, shortness of breath. COMPARISON: None available. TECHNIQUE: Frontal view of the chest was obtained. FINDINGS: Normal lung volumes. No consolidation, pneumothorax, pleural effusion. Cardiac and mediastinal contours are normal. Pulmonary vasculature is unremarkable. Degenerative spondylosis in the thoracic spine. No acute osseous findings. XR/XR chest 1V IMPRESSION: No acute pulmonary findings.
--- NOTE | 2024-04-01 11:55 | PC.NURSE ---
No answer at 11:55am
[2024-04-01 11:56] VITALS: BMI 28.9
--- NOTE | 2024-04-01 12:05 | ECG_ITS ---
Test Reason : DYSPNEA Blood Pressure : / mmHG Vent. Rate : 082 BPM Atrial Rate : 082 BPM P-R Int : 150 ms QRS Dur : 084 ms QT Int : 366 ms P-R-T Axes : 047 080 037 degrees QTc Int : 427 ms Normal sinus rhythm Normal ECG When compared with ECG of 06-OCT-2023 07:46, No significant change was found Referred By: Nancy Rodriguez Electronically Signed By:JOSE MEDINA MD
--- NOTE | 2024-04-01 12:05 | ED.GENADULT ---
HPI - General Adult General Chief complaint: Dyspnea Stated complaint: Anxiety Time Seen by Provider: 04/01/24 12:04 Source: patient, EMS and other ([facility] staff) Mode of arrival: EMS Limitations: no limitations History of Present Illness HPI narrative: Patient is a 63 year old assigned female at with a psychiatric medical history, currently at [facility], presenting to the emergency department today with shortness of breath. Patient states that this morning, she began having some shortness of breath. Patient states that it has resolved some now that she is in the hospital. Patient denies any dizziness, lightheadedness, abdominal pain, nausea, vomiting, fever, chills, blurry vision, double vision, loss of vision, chest pain, back pain, night sweats, pain with urination, increased urinary frequency, increased urinary urgency, blood in her urine or stool, syncope or a near syncopal episode, recent trauma or falls, bowel incontinence, bladder incontinence, bowel retention, bladder retention, or any other complaints at this time. Onset (ago): hour(s) Severity: mild Relieving factors: none Exacerbating factors: none Associated symptoms: shortness of breath Treatments prior to arrival: none Related Data Home Medications ?Medication ?Instructions ?Recorded ?Confirmed acetaminophen 325 mg tablet 650 mg PO Q4H PRN Pain (Scale 10/06/23 10/06/23 Score 1-3) aluminum-mag hydroxide-simethicone 30 ml PO Q6H PRN Heartburn 10/06/23 10/06/23 400 mg-400 mg-40 mg/5 mL oral susp (Mylanta Maximum Strength) apixaban 5 mg tablet 5 mg PO BID 10/06/23 10/06/23 aspirin 81 mg chewable tablet 81 mg PO DAILY 10/06/23 10/06/23 atorvastatin 20 mg tablet 20 mg PO BEDTIME 10/06/23 10/06/23 benztropine 1 mg tablet 1 mg PO BID PRN EPS 10/06/23 10/06/23 chlorpromazine 25 mg/mL injection 50 mg IM Q4H PRN Agitation 10/06/23 10/06/23 solution chlorpromazine 50 mg tablet 50 mg PO Q4H PRN Agitation 10/06/23 10/06/23 cyanocobalamin (vitamin B-12) 1,000 mcg PO DAILY 10/06/23 10/06/23 1,000 mcg tablet diphenhydramine HCl 25 mg tablet 25 mg PO TID PRN Anxiety 10/06/23 10/06/23 diphenhydramine HCl 50 mg/mL 50 mg IM Q4H PRN Agitation 10/06/23 10/06/23 injection solution folic acid 1 mg tablet 1 mg PO DAILY 10/06/23 10/06/23 glycopyrrolate 1 mg tablet 1 mg PO BID 10/06/23 10/06/23 haloperidol 2 mg tablet 2 mg PO BID PRN Psychosis 10/06/23 10/06/23 haloperidol decanoate 100 mg/mL 100 mg IM Q2W 10/06/23 10/07/23 intramuscular solution (Haldol Decanoate) haloperidol lactate 5 mg/mL 2 mg IM BID PRN Psychosis 10/06/23 10/06/23 injection solution levothyroxine 25 mcg tablet 25 mcg PO DAILY 10/06/23 10/06/23 lorazepam 1 mg tablet 1 mg PO Q6H PRN Anxiety 10/06/23 10/06/23 lorazepam 2 mg tablet 2 mg PO BID 10/06/23 10/06/23 magnesium hydroxide 400 mg/5 mL 30 ml PO BEDTIME PRN Constipation 10/06/23 10/06/23 oral suspension (Milk of Magnesia) metoprolol tartrate 25 mg tablet 12.5 mg PO BID 10/06/23 10/06/23 mirtazapine 15 mg tablet 22.5 mg PO BEDTIME 10/06/23 10/06/23 multivitamin 1 tab PO DAILY 10/06/23 10/06/23 naproxen 500 mg tablet 500 mg PO BID PRN Pain (Scale 10/06/23 10/06/23 Score 1-3) nicotine (polacrilex) 2 mg gum 2 mg buccal Q2H PRN Nicotine 10/06/23 10/06/23 Cravings paliperidone palmitate 234 mg/1.5 234 mg IM Q4W 10/06/23 10/07/23 mL intramuscular syringe (Invega Sustenna) pantoprazole 40 mg tablet,delayed 40 mg PO DAILY 10/06/23 10/06/23 release pantoprazole 40 mg tablet,delayed 40 mg PO DAILY 10/06/23 10/06/23 release polyethylene glycol 3350 17 gram 17 g PO DAILY 10/06/23 10/06/23 oral powder packet (Miralax) trazodone 50 mg tablet 50 mg PO BEDTIME PRN Insomnia 10/06/23 10/06/23 Allergies Allergy/AdvReac Type Severity Reaction Status Date / Time codeine [CODEINE] Allergy Severe DIFF Verified 04/01/24 12:01 BREATHING morphine [MORPHINE] Allergy Severe DIFF Verified 04/01/24 12:01 BREATHING zolpidem [From AMBIEN] Allergy Severe THROAT Verified 04/01/24 12:01 CLOSES oxycodone [OXYCODONE] Allergy Intermediate HIVES Verified 04/01/24 12:01 From DEMEROL Allergy Intermediate HIVES Uncoded 04/01/24 12:01 From KEFLEX Allergy Intermediate HIVES Uncoded 04/01/24 12:01 From PROZAC Allergy Intermediate HIVES Uncoded 04/01/24 12:01 Review of Systems Constitutional: Constitutional: Reports no additional constitutional complaints, Denies chills, Denies fever(s) and Denies night sweats Eyes: Eyes: Reports no additional eye complaints, Denies blurry vision, Denies change in vision, Denies diplopia, Denies eye discharge, Denies loss of vision and Denies eye pain ENT: Denies dizziness Cardiovascular: Cardiovascular: Reports no additional cardiovascular complaints, Denies chest pain, Denies lightheadedness, Denies Loss of Consciousness and Reports dyspnea Respiratory: Respiratory: Reports no additional respiratory complaints and Reports dyspnea Gastrointestinal: Gastrointestinal: Reports no additional gastrointestinal complaints, Denies abdominal pain, Denies melena, Denies hematochezia, Denies change in bowel habits and Denies change in stool character Genitourinary: Genitourinary: Denies hematuria, Denies urinary frequency, Denies dysuria, Denies urinary incontinence, Denies urinary hesitancy and Denies urinary urgency Musculoskeletal: Musculoskeletal: Reports no additional musculoskeletal complaints, Denies numbness and Denies tingling Neurologic: Denies dizziness, Denies loss of vision, Denies numbness and Denies tingling Psychiatric: Psychiatric: Reports no additional psychiatric complaints Endocrine: Endocrine: Reports no additional endocrine complaints Hematologic/Lymphatic: Hematologic/Lymphatic: Reports no additional hematologic/lymphatic complaints Allergic/Immunologic: Allergic/Immunologic: Reports no additional allergic/immunologic complaints PMFSH Past Medical History Attestation statement: The following information was validated with the patient. (all information validated with the [facility] staff) Source: old records reviewed, nursing notes reviewed and other ([facility] staff provided additional history and confirmed the history provided by the patient) Social History Social History Advance Directives: No Advance Directives Information Provided: Yes Do you have a plan to hurt others: No Plan Physical Exam ED Vital Signs: Vital Signs - 24 hr 04/01/24 12:36 04/01/24 14:28 Temperature 98.1 F Pulse Rate 72 93 Respiratory Rate 18 18 Blood Pressure 114/64 Pulse Oximetry 94 Oxygen Delivery Method Room Air BMI result Body Mass Index 28.9 Const General: cooperative, no acute distress, alert and awake Nutritional Appearance: well nourished Orientation/consciousness: patient oriented x3 Limitations: no limitations HENMT Head: Yes normal to inspection and Yes atraumatic Ears: hearing grossly normal bilaterally and external ears normal General nose exam: Normal external nose present, no nasal discharge noted and no epistaxis Face and sinus: Yes normal facial exam, No abrasion and No laceration Mouth: Normal oral and palatal mucosa present, no drooling and no muffled voice Eyes General: appearance normal, both eyes and all related structures Periorbital: periorbital findings normal Eyelids: Yes eyelids normal Conjunctivae: conjunctivae normal Pupils: Equal, round and reactive pupils present EOM: EOMs intact bilaterally Neck Neck: Yes normal visual inspection, Yes full ROM and Yes no lymphadenopathy Chest Chest palpation & inspection: normal inspection of the chest Resp Effort & Inspection: normal respiratory effort and able to speak in complete sentences Auscultation: clear to auscultation bilaterally GI Inspection: Yes normal to inspection Neuro General: patient oriented x3 and moves all extremities Cranial nerves: Yes Equal, round and reactive pupils present Cognition (Neuro): normal cognition Motor exam (neuro): 5/5 motor strength present throughout Sensory Exam: Normal double simultaneous stimulation for sensation Coordination: [id number] test normal Extrem General: Yes normal to inspection, Yes full ROM and Yes capillary refill normal Psych Appearance: grossly normal Mental Status: mental status grossly normal Affect: normal affect Attitude: cooperative Thought process: Normal thought process present Thought content: Normal thought content present Insight: Good insight present (Psych) Medications Administered Discontinued Medications Generic Name Dose Route Start Last Admin Trade Name Freq PRN Reason Stop Dose Admin Albuterol Sulfate 2 puff 04/01/24 12:29 04/01/24 12:36 Albuterol Sulfate 90 Mcg 8 Gm Inhaler INHALE 04/01/24 12:30 2 puff ONCE ONE Administration Medical Decision Making Medical Decision Making [facility] Narrative: Patient is a 63 year old assigned female at with a psychiatric medical history presenting to the emergency department today with shortness of breath. Patient's physical exam was unremarkable. Patient's blood work was unremarkable. Patient's EKG was unremarkable. Patient's chest x-ray showed no acute process. I explained my physical exam findings as well as all test results to the patient. I answered all questions asked by the patient. I stressed the importance of the patient taking her medication as prescribed. I stressed the importance of the patient following up with her primary care provider. I stressed the importance of the patient returning to the emergency department immediately if her symptoms were to worsen or if she were to develop any dizziness, shortness of breath, difficulty breathing, chest pain, blurry vision, loss of vision, nausea, vomiting, abdominal pain, fever, chills, back pain, or any other complaints. Patient verbalized agreement and understanding with this treatment plan and discharge. Differential Diagnosis Differential Diagnoses: The differential diagnosis associated with the presentation includes Viral illness Anxiety SOB NSTEMI STEMI Admission/Observation Consideration of admission/observation: Escalation of care including admission/observation considered Patient would have been admitted to the hospital had her work up had any findings where hospital admission was appropriate and her clinical presentation warranted hospital admission. Lab Data [facility] Lab Attestation statement: I reviewed the patient's lab results. My interpretation of these results are in the MDM Rationale portion of this note. 04/01/24 12:48 04/01/24 12:48 Labs: Lab Results 04/01/24 Range/Units 12:48 WBC 7.2 (4.8-10.8) X10*3/uL RBC 4.16 L (4.20-5.50) X10*6/uL Hgb 13.5 (12.0-16.0) g/dl Hct 38.4 (37.0-47.0) % MCV 92.3 (80.0-98.0) fL MCH 32.5 (27.0-33.0) pg MCHC 35.2 H (31.0-35.0) g/dl RDW 12.1 (11.0-16.0) % Plt Count 279 (160-400) X10*3/uL MPV 9.2 L (9.4-12.3) fL Immature Gran % (Auto) 1.0 H (0.0-0.4) % Neut % (Auto) 62.3 (45-73) % Lymph % (Auto) 23.6 (20-40) % Howell % (Auto) 10.5 (2-11) % Eos % (Auto) 1.8 (0-4) % Baso % (Auto) 0.8 (0-2) % Lymph # (Auto) 1.7 (1.2-4.9) X10*3/uL Howell # (Auto) 0.8 (0.1-1.2) X10*3/uL Eos # (Auto) 0.1 (0.0-0.4) X10*3/uL Baso # (Auto) 0.1 (0.0-0.2) X10*3/uL Abs Immat Gran (auto) 0.07 H (0.00-0.03) X10*3/uL Absolute Neuts (auto) 4.5 (2.0-8.3) x10*3/uL Absolute Nucleated RBC 0.000 (0.0-0.012) X10*3/uL Nucleated RBC % (auto) 0.0 (0.0-0.2) /100WBC Sodium 135 (135-145) mmol/L Potassium 4.6 (3.3-5.1) mmol/L Chloride 100 (96-108) mmol/L Carbon Dioxide 25 (22-29) mmol/L Anion Gap 15 (12-20) BUN 12 (9-16) mg/dL Creatinine 0.78 (0.5-1.4) mg/dL Estim Creat Clear Calc 72.9 Estimated GFR > 60 Random Glucose 86 (60-115) mg/dL Calcium 9.1 (8.4-10.2) mg/dL Magnesium 2.2 (1.6-2.6) mg/dL Total Bilirubin 0.3 (0.0-1.0) mg/dL AST 18 (5-31) U/L ALT 24 (0-31) U/L Alkaline Phosphatase 84 (39-117) U/L Troponin I High Sens < 2.7 (<3.5-17.0) ng/L Total Protein 7.0 (6.5-8.0) g/dL Albumin 3.8 (3.5-5.0) g/dL Influenza Type A (PCR) NEGATIVE (Negative) Influenza Type B (PCR) NEGATIVE (Negative) RSV RNA Qual (PCR) NEGATIVE (Negative) SARS-CoV-2 RNA (RT-PCR) NEGATIVE (Negative) Independent Interpretation I performed an independent interpretation of an: EKG and Plain X-Ray Interpretation: My interpretation is in agreement with the radiologist's impression of this imaging study. EXAMINATION: XR CHEST CLINICAL INFORMATION: Chest pain, shortness of breath. COMPARISON: None available. TECHNIQUE: Frontal view of the chest was obtained. FINDINGS: Normal lung volumes. No consolidation, pneumothorax, pleural effusion. Cardiac and mediastinal contours are normal. Pulmonary vasculature is unremarkable. Degenerative spondylosis in the thoracic spine. No acute osseous findings. XR/XR chest 1V IMPRESSION: No acute pulmonary findings. Dictated By: Viktor Howard MD Signed By: Electronically signed by Viktor Howard MD 04/01/24 1418 Vent. Rate: 082 BPM Atrial Rate: 082 BPM P-R Int: 150 ms QRS Dur: 084 ms QT Int: 366 ms P-R-T Axes: 047 080 037 degrees QTc Int: 427 ms Normal sinus rhythm Normal ECG When compared with ECG of 06-OCT-2023 07:46, No significant change was found lectronically Signed By:JACOB GUTIERRES MD Dictated By: Jacob Gutierres MD Signed By: Electronically signed by Jacob Gutierres MD 04/01/24 2392 Radiology Impression Discussion of test interpretation with radiology: I have reviewed the radiologist's reading. Independent Historian Clinical information obtained from an independent historian. History obtained from or confirmed by: EMS (EMS provided additional history and confirmed the history provided by the patient.) and Other ([facility] staff provided additional history and confirmed the history provided by the patient.) Discharge Plan Discharge Clinical Impression: Shortness of breath Patient Disposition: Home, Self-Care Instructions: Shortness of Breath (ED) Additional Instructions: Your work up was reassuring. Your chest x-ray, EKG, and lab work showed no concerning findings. Follow up with your primary care provider. Return to the emergency department immediately if your symptoms worsen or if you develop any dizziness, shortness of breath, difficulty breathing, chest pain, blurry vision, loss of vision, nausea, vomiting, abdominal pain, fever, chills, back pain, or any other complaints. Prescriptions: No Action multivitamin Tablet 1 tab PO DAILY glycopyrrolate 1 mg Tablet 1 mg PO BID acetaminophen 325 mg Tablet 650 mg PO Q4H PRN (Reason: Pain (Scale Score 1-3)) atorvastatin 20 mg Tablet 20 mg PO BEDTIME trazodone 50 mg Tablet 50 mg PO BEDTIME PRN (Reason: Insomnia) polyethylene glycol 3350 [Miralax] 17 gram Powder In Packet 17 g PO DAILY nicotine (polacrilex) 2 mg Gum 2 mg BUCCAL Q2H PRN (Reason: Nicotine Cravings) haloperidol decanoate [Haldol Decanoate] 100 mg/mL Solution 100 mg IM Q2W cyanocobalamin (vitamin B-12) 1,000 mcg Tablet 1,000 mcg PO DAILY levothyroxine 25 mcg Tablet 25 mcg PO DAILY diphenhydramine HCl 50 mg/mL Solution 50 mg IM Q4H PRN (Reason: Agitation) magnesium hydroxide [Milk of Magnesia] 400 mg/5 mL Suspension 30 ml PO BEDTIME PRN (Reason: Constipation) lorazepam 2 mg Tablet 2 mg PO BID pantoprazole 40 mg Tablet,Delayed Release (Dr/Ec) 40 mg PO DAILY pantoprazole 40 mg Tablet,Delayed Release (Dr/Ec) 40 mg PO DAILY diphenhydramine HCl 25 mg Tablet 25 mg PO TID PRN (Reason: Anxiety) benztropine 1 mg Tablet 1 mg PO BID PRN (Reason: EPS) chlorpromazine 25 mg/mL Solution 50 mg IM Q4H PRN (Reason: Agitation) aspirin 81 mg Tablet,Chewable 81 mg PO DAILY folic acid 1 mg Tablet 1 mg PO DAILY haloperidol lactate [Haldol] 5 mg/mL Solution 2 mg IM BID PRN (Reason: Psychosis) mirtazapine 15 mg Tablet 22.5 mg PO BEDTIME lorazepam 1 mg Tablet 1 mg PO Q6H PRN (Reason: Anxiety) haloperidol 2 mg Tablet 2 mg PO BID PRN (Reason: Psychosis) chlorpromazine 50 mg Tablet 50 mg PO Q4H PRN (Reason: Agitation) naproxen 500 mg Tablet 500 mg PO BID PRN (Reason: Pain (Scale Score 1-3)) alum-mag hydroxide-simeth [Mylanta Maximum Strength] 400-400-40 mg/5 mL Suspension 30 ml PO Q6H PRN (Reason: Heartburn) metoprolol tartrate 25 mg Tablet 12.5 mg PO BID Invega Sustenna 234 mg/1.5 mL Syringe 234 mg IM Q4W apixaban 5 mg Tablet 5 mg PO BID Referrals: [facility] Family Medicine [Provider Group] (Call to establish and follow up with a primary care provider. If you already have a primary care provider, please follow up with them.) [facility] [Provider Group] [facility] Primary Care,[facility] [Provider Group] Print Language: Sudanese
[2024-04-01 12:36] VITALS: PULSE 72; RESP 18; O2SAT 99
[2024-04-01] MEDS: Albuterol Sulfate 90 MCG 8 GM INHALER 2 PUFF INHALE (12:36)
[2024-04-01 12:58] LABS: MANUAL DIFF FLAG NO
[2024-04-01 12:59] LABS: Basophils Absolute Auto 0.1 X10*3/uL (0.0-0.2); Basophils Percent Auto 0.8 % (0-2); Eosinophils Absolute Auto 0.1 X10*3/uL (0.0-0.4); Eosinophils Percent Auto 1.8 % (0-4); Hematocrit 38.4 % (37.0-47.0); Hemoglobin 13.5 g/dl (12.0-16.0); Imm Gran Abs Auto 0.07 X10*3/uL (0.00-0.03); Lymphocytes Absolute Auto 1.7 X10*3/uL (1.2-4.9); Lymphocytes Percent Auto 23.6 % (20-40); Mean Corpuscular HGB Conc 35.2 g/dl (31.0-35.0); Mean Corpuscular Hemoglobin 32.5 pg (27.0-33.0); Mean Corpuscular Volume 92.3 fL (80.0-98.0); Mean Platelet Volume 9.2 fL (9.4-12.3); Monocytes Absolute Auto 0.8 X10*3/uL (0.1-1.2); Monocytes Percent Auto 10.5 % (2-11); Neutrophils Absolute Auto 4.5 x10*3/uL (2.0-8.3); Neutrophils Percent Auto 62.3 % (45-73); Platelet Count 279 X10*3/uL (160-400); Red Blood Count 4.16 X10*6/uL (4.20-5.50); Red Cell Distribution Width 12.1 % (11.0-16.0); White Blood Count 7.2 X10*3/uL (4.8-10.8)
[2024-04-01 13:13] LABS: Alanine Aminotransferase 24 U/L (0-31); Albumin Level 3.8 g/dL (3.5-5.0); Alkaline Phosphatase 84 U/L (39-117); Anion Gap 15 (12-20); Aspartate Amino Transferase 18 U/L (5-31); Bilirubin Total 0.3 mg/dL (0.0-1.0); Blood Urea Nitrogen 12 mg/dL (9-16); Calcium 9.1 mg/dL (8.4-10.2); Carbon Dioxide 25 mmol/L (22-29); Chloride 100 mmol/L (96-108); Creatinine Clr Calc Pharmacy 72.9; Estimated Glomerular Filt Rate > 60; Glucose Random 86 mg/dL (60-115); Magnesium 2.2 mg/dL (1.6-2.6); Potassium 4.6 mmol/L (3.3-5.1); Sodium 135 mmol/L (135-145)
[2024-04-01 13:22] LABS: Troponin-I High Sensitivity < 2.7 ng/L (<3.5-17.0)
[2024-04-01 13:35] LABS: Influenza A PCR NEGATIVE (Negative); Influenza B PCR NEGATIVE (Negative); Resp Syncy Virus RNA Qual PCR NEGATIVE (Negative); SARS COV2 PCR INHOUSE NEGATIVE (Negative)
[2024-04-01 14:28] VITALS: BP 114/64; PULSE 93; RESP 18; TEMP 36.7; O2SAT 94
--- NOTE | 2024-04-01 14:38 | PC.NURSE ---
nurse to nurse given to ashok for return to facility
[2024-04-01 20:01] VITALS: BP 120/75; PULSE 89; RESP 17; TEMP 36.6; O2SAT 95
== END 2024-04-01 20:04 | disposition home or self-care (01) ==
PROVIDERS: Physician Assistant Medical; Emergency Provider Student in an Organized Health Care Education/Training Program
DX: R06.02 Shortness of breath (principal)
CPT/HCPCS: 0241U; 71045; 80053; 83735; 84484; 85025; 93005; 94640; 99284; 99285

== ENCOUNTER → 2024-04-01 12:05 | Outpatient (BNV) | payer OTHER, SELFPAY | PROVIDERS: Emergency Provider Student in an Organized Health Care Education/Training Program; Visit Provider Internal Medicine Cardiovascular Disease | DX: R06.00 Dyspnea, unspecified (principal) | CPT/HCPCS: 93010 ==